=== PATIENT | male | born 1950 | race American Indian/Alaskan Native ===

== ENCOUNTER 2019-11-10 21:55 | Emergency (ER) | payer MEDICARE ==
[2019-11-10] MEDS ORDERED: SODIUM CHLORIDE 0.9% 1000 ML 1,000 ML ONE (22:47)
[2019-11-10] MEDS ORDERED: SODIUM CHLORIDE 0.9% 1000 ML 1,000 ML IV ONE (22:49)
[2019-11-10 23:21] LABS: Basophils # (Auto) 0.1 K/mm3 (0.0-0.1); Basophils % (Auto) 0.8 % (0.0-1.8); Eosinophils # (Auto) 0.5 K/mm3 (0.0-0.4); Eosinophils % (Auto) 6.5 % (0.0-4.3); Hematocrit 33.2 % (35.5-45.6); Hemoglobin 10.8 gm/dl (11.8-15.2); Lymphocytes # (Auto) 2.5 K/mm3 (1.2-5.4); Lymphocytes % (Auto) 31.7 % (13.4-35.0); Mean Corpuscular HGB Conc 33 % (32-34); Mean Corpuscular Volume 91 fl (84-94); Monocytes # (Auto) 0.5 K/mm3 (0.0-0.8); Monocytes % (Auto) 6.6 % (0.0-7.3); Platelet Count 331 K/mm3 (140-440); Red Blood Count 3.65 M/mm3 (3.65-5.03); Red Cell Distribution Width 15.2 % (13.2-15.2)
[2019-11-10 23:42] LABS: Alanine Aminotransferase 43 units/L (7-56); BUN/Creatinine Ratio 18; Blood Urea Nitrogen 18 mg/dL (9-20); Calcium 9.4 mg/dL (8.4-10.2); Hemolysis Index 20
[2019-11-10 23:44] LABS: Bilirubin,Direct < 0.2 mg/dL (0-0.2)
--- NOTE | 2019-11-11 | Cat Scan Report ---
CT head/brain wo con INDICATION: ams. TECHNIQUE: All CT scans at this location are performed using the following dose modulation technique: Automated exposure control. CONTRAST: None. COMPARISON: None available. FINDINGS: The ventricular system is appropriate in size and configuration without midline shift. Nega tive for mass, stroke or hemorrhage. Low density within the periventricular white matter is typical of chronic small vessel ischemic fields e. A small subdural hematoma at the right frontal region measures 7 mm. This is not well evaluated due t o motion artifact. Imaged bones and paranasal sinuses are unremarkable other than chronic right mastoiditis. IMPRESSION: 1. Small right frontal subdural hematoma. 2. Chronic changes of atrophy and small vessel ischemia. 3. Chronic right-sided mastoiditis. CRITICAL RESULT: Time of Discovery: 10:53 PM Time of Communication: 10:55 PM Licensed Practitioner Receiving Report: Dr. Amaya Read Back Performed: Yes. Signer Name: Emmanuel Sylvester MD Signed: 11/10/2019 11:56 PM Workstation Name: [id number]
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
[2019-11-11 00:08] LABS: Bilirubin,Urine NEG (Negative); Blood,Urine NEG (Negative); Color,Urine Straw (Yellow); Protein,Urine <15 mg/dL mg/dL (Negative); Urobilinogen,Urine < 2.0 mg/dL (<2.0); WBC,Urine < 1.0 /HPF (0.0-6.0)
[2019-11-11 16:50] VITALS: BP 118/68
== END 2019-11-11 14:45 | disposition home or self-care (01) ==
LOC: ED 21:55
DX: F10.129 Alcohol abuse with intoxication, unspecified (principal); I62.03 Nontraumatic chronic subdural hemorrhage; I11.0 Hypertensive heart disease with heart failure; I50.9 Heart failure, unspecified; R41.82 Altered mental status, unspecified; K21.9 Gastro-esophageal reflux disease without esophagitis; R56.9 Unspecified convulsions; F17.200 Nicotine dependence, unspecified, uncomplicated; Z98.890 Other specified postprocedural states; Z79.899 Other long term (current) drug therapy
CPT/HCPCS: 36415; 70450; 80048; 80076; 81001; 85025; 93005; 96360; 99284; J7030; 80320; G0480

== ENCOUNTER 2020-03-02 17:35 | Emergency (ER) | payer MEDICARE ==
--- NOTE | 2020-03-02 18:56 | Event Note ---
ED Screening Note ED Screening Note: headache dizziness that began 6-7 days ago +SOB +CP +diarrhea +cough +vomiting PMHx schizophrenia, HTN, seizures, NH, states he has a filter and stents in the leg no allergies to meds former smoker ETOH +cocaine two weeks ago This initial assessment/diagnostic orders/clinical plan/treatment(s) is/are subject to change based on patients health status, clinical progression and re- assessment by fellow clinical providers in the ED. Further treatment and workup at subsequent clinical providers discretion. Patient/guardian urged not to elope from the ED as their condition may be serious if not clinically assessed and managed. Initial orders include: labs, EKG, CXR, CT head
[2020-03-02 19:31] LABS: Basophils % (Auto) 0.6 % (0.0-1.8); Eosinophils # (Auto) 0.3 K/mm3 (0.0-0.4); Eosinophils % (Auto) 5.2 % (0.0-4.3); Hematocrit 36.9 % (35.5-45.6); Hemoglobin 12.4 gm/dl (11.8-15.2); Lymphocytes # (Auto) 1.2 K/mm3 (1.2-5.4); Lymphocytes % (Auto) 23.9 % (13.4-35.0); Mean Corpuscular HGB Conc 34 % (32-34); Mean Corpuscular Volume 72 fl (84-94); Monocytes # (Auto) 0.6 K/mm3 (0.0-0.8); Monocytes % (Auto) 12.7 % (0.0-7.3); Platelet Count 300 K/mm3 (140-440); Red Blood Count 5.14 M/mm3 (3.65-5.03); Red Cell Distribution Width 16.9 % (13.2-15.2)
--- NOTE | 2020-03-02 19:47 | Cat Scan Report ---
CT BRAIN: 03/02/2020 INDICATION / CLINICAL INFORMATION: headache, dizziness. COMPARISON: 11/10/2019 FINDINGS: BRAIN/INTRACRANIAL STRUCTURES: Unenhanced CT images of the brain were obtained. There is no evidence of acute abnormality. Ventricles and sulci are prominent in size, consistent wit h prominent diffuse cerebral atrophy. Chronic white matter hypoattenuation is present throughout the cerebral hemispheric white matter. There is an isodense right frontal subdural collection, with a maximum thickness of approximately 6 m m. This is the appearance of a chronic hygroma, without evidence of acute blood products. This has not changed when compared to the prior exam from 11/10/2019. I would consider this to be of un likely acute clinical significance. EXTRACRANIAL STRUCTURES: Unremarkable. IMPRESSION: No acute abnormality. Chronic and age-related changes. Small right frontal subdural collection. No change when compared to 11/10/2019. All CT scans at this location are performed using dose reduction to ALARA by means of automated expos ure control. Signer Name: Heri Leyva MD Signed: 03/02/2020 7:43 PM Workstation Name: [id number]
[2020-03-02 19:56] LABS: Alanine Aminotransferase 9 units/L (7-56); Albumin 3.7 g/dL (3.9-5); BUN/Creatinine Ratio 11; Blood Urea Nitrogen 9 mg/dL (9-20); Calcium 9.4 mg/dL (8.4-10.2); Hemolysis Index 9
--- NOTE | 2020-03-02 20:01 | XRay Report ---
CHEST 2 VIEWS INDICATION / CLINICAL INFORMATION: SOB. COMPARISON: 11/15/2017 FINDINGS: SUPPORT DEVICES: None. HEART / MEDIASTINUM: No significant abnormality. LUNGS / PLEURA: No significant pulmonary or pleural abnormality. No pneumothorax. ADDITIONAL FINDINGS: No significant additional findings. IMPRESSION: 1. No acute findings. Signer Name: Armaan Matias MD Signed: 03/02/2020 7:57 PM Workstation Name: [id number]
[2020-03-02 23:19] LABS: Bilirubin,Urine NEG (Negative); Blood,Urine NEG (Negative); Color,Urine Yellow (Yellow); Protein,Urine <15 mg/dL mg/dL (Negative); Urobilinogen,Urine < 2.0 mg/dL (<2.0)
[2020-03-02 23:24] LABS: Amphetamine Screen,Urine PRESUMPTIVE NEGATIVE; Benzodiazepines Screen,Urine PRESUMPTIVE NEGATIVE; Cannabinoid Screen,Urine PRESUMPTIVE NEGATIVE; Cocaine Screen,Urine PRESUMPTIVE NEGATIVE; Methadone Screen,Urine PRESUMPTIVE NEGATIVE; Opiate Screen,Urine PRESUMPTIVE NEGATIVE
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
[2020-03-03 02:48] VITALS: BP 120/72
[2020-03-03] MEDS ORDERED: ACETAMINOPHEN 325 MG TAB PO PRN ×2 (02:56)
[2020-03-03] MEDS ORDERED: ZOLPIDEM 5 MG TAB PO PRN (02:56)
[2020-03-03] MEDS ORDERED: ONDANSETRON 4 MG/2 ML INJ IV PRN (02:56)
[2020-03-03] MEDS ORDERED: traMADol 50 MG TAB PO PRN (02:56)
[2020-03-03] MEDS ORDERED: METOCLOPRAMIDE 10 MG/2 ML INJ IV PRN (02:56)
[2020-03-03] MEDS ORDERED: DOCUSATE SODIUM 100 MG CAP PO PRN (02:56)
[2020-03-03] MEDS ORDERED: MAGNESIUM HYDROXIDE (MOM) ORAL LIQD UDC PO PRN (02:56)
[2020-03-03] MEDS ORDERED: ALUM-MAG HYDROXIDE-SIMETHICONE 200-200-20MG/5ML ORAL LIQD 30 ML PO PRN (02:56)
[2020-03-03] MEDS ORDERED: hydrALAZINE 20 MG/1 ML INJ IV PRN (02:56)
[2020-03-03] MEDS ORDERED: PANTOPRAZOLE 40 MG TAB PO SCH (10:00)
[2020-03-04] MEDS ORDERED: ASPIRIN 81 MG TAB CHEW PO SCH (10:00)
== END 2020-03-03 02:47 | disposition home or self-care (01) ==
LOC: ED 17:35
DX: B34.9 Viral infection, unspecified (principal); I11.0 Hypertensive heart disease with heart failure; I50.9 Heart failure, unspecified; I25.2 Old myocardial infarction; K21.9 Gastro-esophageal reflux disease without esophagitis; R56.9 Unspecified convulsions; Z98.890 Other specified postprocedural states; Z79.899 Other long term (current) drug therapy
CPT/HCPCS: 36415; 70450; 71046; 80053; 80307; 81001; 82550; 83690; 83880; 84484; 85025; 93005